=== PATIENT | female | born 1990 | race Caucasian/White ===

== ENCOUNTER 2018-02-16 14:00 | Emergency (ER) | payer MEDICAID ==
[~2018-02-16] VITALS: Ht 157.5 cm; Wt 66.2 kg
[2018-02-16 15:18] VITALS: BP 128/71
[2018-02-16] MEDS ORDERED: KETOROLAC TROMETH 60MG/2ML VIAL IM ONE (15:30)
== END 2018-02-16 16:05 | disposition home or self-care (01) ==
LOC: ER 14:00
DX: G43.009 Migraine without aura, not intractable, without status migrainosus (principal); R42 Dizziness and giddiness; R53.1 Weakness
CPT/HCPCS: 96372; 99283; J1885

== ENCOUNTER 2018-02-18 00:37 | Emergency (ER) | payer MEDICAID ==
[~2018-02-18] VITALS: Ht 157.5 cm; Wt 66.7 kg
[2018-02-18 00:40] VITALS: BP 147/103
== END 2018-02-18 02:30 | disposition left against medical advice (07) ==
LOC: ER 00:37
DX: R51 Headache (principal); Z53.21 Procedure and treatment not carried out due to patient leaving prior to being seen by health care provider

== ENCOUNTER 2018-04-15 19:55 | Emergency (ER) | payer MEDICAID ==
[~2018-04-15] VITALS: Ht 157.5 cm; Wt 66.2 kg
[2018-04-15 20:34] VITALS: BP 136/77
[2018-04-15] MEDS ORDERED: KETOROLAC TROMETH 60MG/2ML VIAL IM ONE (21:00)
[2018-04-15] MEDS ORDERED: HYDROcodone-ACET 10/325MG TAB PO ONE (21:00)
== END 2018-04-15 22:07 | disposition home or self-care (01) ==
LOC: ER 19:55
DX: S62.316A Displaced fracture of base of fifth metacarpal bone, right hand, initial encounter for closed fracture (principal); Z90.710 Acquired absence of both cervix and uterus; Z90.49 Acquired absence of other specified parts of digestive tract; W01.0XXA Fall on same level from slipping, tripping and stumbling without subsequent striking against object, initial encounter; Y93.89 Activity, other specified; Y99.8 Other external cause status; Y92.89 Other specified places as the place of occurrence of the external cause
CPT/HCPCS: 29125; 73130; 96372; 99284; J1885

== ENCOUNTER 2018-06-25 17:23 | Emergency (ER) | payer MEDICAID ==
[~2018-06-25] VITALS: Ht 157.5 cm; Wt 75.7 kg
[2018-06-25 17:30] VITALS: BP 136/84
[2018-06-25] MEDS ORDERED: D5W 5% IV ONE (18:45)
[2018-06-25] MEDS ORDERED: ACETYLCYSTEINE IV ONE (18:45)
== END 2018-06-25 20:00 | disposition left against medical advice (07) ==
LOC: ER 17:24
DX: R11.2 Nausea with vomiting, unspecified (principal); Z53.21 Procedure and treatment not carried out due to patient leaving prior to being seen by health care provider
CPT/HCPCS: J0132; J7030; J7060

== ENCOUNTER 2021-09-29 21:13 | Emergency (ER) | payer MEDICAID, OTHER ==
[~2021-09-29] VITALS: Ht 157.5 cm; Wt 83.9 kg
[2021-09-29 21:14] VITALS: BP 154/81
== END 2021-09-30 03:57 | disposition left against medical advice (07) ==
LOC: ER 21:13
DX: H92.02 Otalgia, left ear (principal); Z53.21 Procedure and treatment not carried out due to patient leaving prior to being seen by health care provider

== ENCOUNTER 2023-11-19 12:29 | Emergency (ER) | payer SELFPAY ==
[~2023-11-19] VITALS: Ht 160 cm; Wt 75.3 kg
[2023-11-19 12:29] VITALS: BP 126/68; PULSE 95; RESP 18; O2SAT 99
[2023-11-20] MEDS ORDERED: AUG875T PO (17:40)
[2023-11-20] MEDS ORDERED: BENZ100C97 PO (17:40)
[2023-11-20] MEDS ORDERED: ALBU108A5 IN (17:40)
== END 2023-11-19 14:57 | disposition left against medical advice (07) ==
LOC: ER 12:29
DX: R10.9 Unspecified abdominal pain (principal); R11.0 Nausea; Z53.21 Procedure and treatment not carried out due to patient leaving prior to being seen by health care provider

== ENCOUNTER 2023-11-20 14:54 | Emergency (ER) | payer SELFPAY ==
[~2023-11-20] VITALS: Ht 160 cm; Wt 78.0 kg
[2023-11-20 15:48] VITALS: BP 92/53; PULSE 100; RESP 28; TEMP 97.1; O2SAT 99
[2023-11-20] MEDS ORDERED: BENZ100C97 PO (17:40)
[2023-11-20] MEDS ORDERED: AUG875T PO (17:40)
[2023-11-20] MEDS ORDERED: ALBU108A5 IN (17:40)
== END 2023-11-20 17:45 | disposition home or self-care (01) ==
LOC: ER 14:54
DX: B34.9 Viral infection, unspecified (principal); Z98.890 Other specified postprocedural states
CPT/HCPCS: 71046